=== PATIENT | female | born 1965 | race Two or more races ===

== ENCOUNTER 2018-09-19 18:59 | Inpatient (IN) | payer BC, MEDICARE ==
[~2018-09-19] VITALS: Ht 157.5 cm; Wt 102.2 kg
[2018-09-19 20:00] LABS: Basophils # (auto) 0 uL; Eosinophils # (auto) 0 uL; Hemoglobin 15.2 g/dL (12.2-16.2); Lymphocytes # (auto) 0.1 uL; Monocytes # (auto) 0.7 uL; Nucleated Red Blood Cells % 0.1 %
[2018-09-19 20:09] LABS: Urine Bacteria FEW /hpf (None Seen); Urine Blood 3+ /uL (Negative); Urine Specific Gravity 1.011 (1.001-1.035); Urine WBC 154 /hpf (0 - 5); Urine WBC Clumps PRESENT /hpf (None Seen)
[2018-09-19 20:11] LABS: Albumin 2.9 g/dL (3.4-5.0); Calcium 9.1 mg/dL (8.5-10.1)
[2018-09-19 20:14] LABS: Bilirubin, Total 1.8 mg/dL (0.2-1.0); Total Protein 7.7 g/dL (6.4-8.2)
[2018-09-19 20:23] LABS: Basophils % (auto) 0.7 % (0.0-2.0); Eosinophils % (auto) 0.2 % (0.0-7.0); Neutrophils % (auto) 86.1 % (37.0-80.0); White Blood Cell 6.3 10^3/uL (4.4-10.8)
[2018-09-19 20:24] LABS: Hematocrit 45.3 % (36.0-46.0); Mean Corpuscular Hemoglobin 31.4 pg (28.0-32.0); Mean Corpuscular Hgb Conc. 33.4 g/dL (32.0-36.0); Mean Corpuscular Volume 93.9 fL (80.0-100.0); Neutrophils # (auto) 5.4 uL; Potassium 2.4 mmol/L (3.5-5.1); Red Blood Cells 4.83 10^6/uL (4.0-5.20); Red Cell Distribution Width 17.4 % (11.8-14.3)
[2018-09-19 20:25] LABS: Platelet Count (auto) 40 10^3/uL (140-450)
[2018-09-19] MEDS ORDERED: POTASSIUM CHL 20 Meq TABLET PO ONE (20:30)
[2018-09-19] MEDS: POTASSIUM CHL 20MEQ/100ML 100 ML IV SCH (20:30)
[2018-09-19] MEDS ORDERED: ONDANSETRON HCL 4 MG/2 ML VIAL IV ONE (23:00)
[2018-09-19] MEDS ORDERED: MORPHINE SULFATE 4 MG/ML SYR/VIAL IV ONE (23:00)
[2018-09-19 23:10] LABS: INR 1.28 (0.9-1.15); Partial Thromboplastin Time 27.3 sec (23.78-33.04); Prothrombin Time 13.5 sec (9.27-12.13)
[2018-09-20] MEDS ORDERED: cefTRIAXone 1GM/50ML D5W 50 ML IV ONE (01:30)
[2018-09-20] MEDS: POTASSIUM CHL 20MEQ/100ML 100 ML IV SCH (01:33)
[2018-09-20] MEDS ORDERED: MORPHINE SULFATE 4 MG/ML SYR/VIAL IV ONE (03:15)
[2018-09-20] MEDS ORDERED: ONDANSETRON HCL 4 MG/2 ML VIAL IV ONE (03:15)
[2018-09-20] MEDS ORDERED: METOPROLOL TARTRATE 50 MG TAB PO ONE (04:45)
[2018-09-20] MEDS ORDERED: VANCOMYCIN PER PHARMACY 0 MG IV SCH (07:15)
[2018-09-20] MEDS ORDERED: ACETAMINOPHEN 500 MG TAB PO PRN (07:15)
[2018-09-20] MEDS ORDERED: ONDANSETRON HCL 4 MG/2 ML VIAL IV PRN (07:15)
[2018-09-20 07:47] LABS: Mean Corpuscular Hemoglobin 31.1 pg (28.0-32.0); White Blood Cell 3.3 10^3/uL (4.4-10.8)
[2018-09-20 07:49] LABS: Hematocrit 40.5 % (36.0-46.0); Hemoglobin 13.4 g/dL (12.2-16.2); Mean Corpuscular Hgb Conc. 33.1 g/dL (32.0-36.0); Mean Corpuscular Volume 93.9 fL (80.0-100.0); Platelet Count (auto) 26 10^3/uL (140-450); Red Blood Cells 4.32 10^6/uL (4.0-5.20); Red Cell Distribution Width 17.9 % (11.8-14.3)
[2018-09-20 07:55] LABS: Basophils % (manual) 0 (0.0-2.0); Blast Cells 0; Eosinophils % (manual) 0 (0-7); Metamyelocytes % 0; Myelocytes % 0; Promyelocytes % 0; Reactive Lymphocytes 0
[2018-09-20] MEDS ORDERED: VANCOMYCIN 1GM/250ML 250 ML IV SCH (08:00)
--- NOTE | 2018-09-20 08:00 | NUR ---
ADMISSION ASSESSMENT COMPLETED PATIENT ADMITTED TO ROOM 251B. MED REC COMPLETED, PATIENT SIGNED AND HOME MEDS SENT TO PHARMACY. ALERT AND ORIENTED X4, AMBULATORY. IV PLACED TO RIGHT FOREARM 20G AFTER ONE ATTEMPT, PATIENT TOLERATED IT WELL.
[2018-09-20 08:03] LABS: BUN/Creatinine Ratio 7.4; Calcium 7.9 mg/dL (8.5-10.1)
[2018-09-20 08:08] LABS: Potassium 2.8 mmol/L (3.5-5.1)
--- NOTE | 2018-09-20 08:08 | NUR ---
Received call from Lab. Patient has critical potassium level of 2.8. Paged on-call hospitalist Dr. Ulrich. returned page and gave order for additional potassium, hold 1000 dose until evaluated by hospitalist. Patient denies s/s of distress and asymptomatic. Will continue to monitor.
[2018-09-20] MEDS ORDERED: POTASSIUM CHLORIDE 20 MEQ, LIDOCAINE 1% (LOCAL ANESTH.) 2 ML in SODIUM CHL 0.9% 100 ML IV ONE (08:30)
[2018-09-20] MEDS ORDERED: POTASSIUM CHL 20 Meq TABLET PO ONE ×2 (08:30→15:00)
[2018-09-20 08:38] LABS: Band Neutrophils % (manual) 7; Lymphocytes % (manual) 9 (10.0-50.0); Monocytes % (manual) 17 (0-12)
[2018-09-20 08:44] VITALS: BP 129/57
[2018-09-20] MEDS ORDERED: PNEUMOCOCCAL VACC POLYS 25 MCG/0.5 ML VIAL IM ONE (09:00)
[2018-09-20] MEDS ORDERED: INFLUENZA QUAD 2018-2019 0.5 ML SYRG IM ONE (09:00)
[2018-09-20] MEDS ORDERED: ALBU1AER4 IN (09:07)
[2018-09-20] MEDS ORDERED: SENN1TAB14 PO (09:07)
[2018-09-20] MEDS ORDERED: POTA10TA51 PO (09:07)
[2018-09-20] MEDS ORDERED: ATEN50TA PO (09:07)
[2018-09-20] MEDS ORDERED: FURO40TA4 PO (09:07)
[2018-09-20] MEDS ORDERED: DULO60CA PO (09:07)
[2018-09-20] MEDS ORDERED: GABA300C10 PO (09:07)
[2018-09-20] MEDS ORDERED: PANT40TA2 PO (09:07)
[2018-09-20] MEDS ORDERED: HYDR-3682 PO (09:07)
[2018-09-20] MEDS ORDERED: TRAZ50TA2 PO (09:07)
[2018-09-20] MEDS ORDERED: DOCU100T15 PO (09:07)
[2018-09-20] MEDS ORDERED: [UNRECOGNIZED DRUG - CODE] PO (09:07)
[2018-09-20] MEDS: HYDROcodone-ACET 5/325MG TAB PO PRN ×4 (09:10→22:27)
[2018-09-20] MEDS: ATENOLOL 50 MG TAB PO SCH ×3 (09:10→22:25)
[2018-09-20] MEDS: VANCOMYCIN 1GM/250ML 250 ML IV SCH ×2 (09:11→18:41)
[2018-09-20] MEDS: DULoxetine HCL 30 MG CAP PO SCH (09:11)
[2018-09-20] MEDS: POTASSIUM CHL 20 Meq TABLET PO SCH (10:00)
--- NOTE | 2018-09-20 10:38 | NUR ---
DR. Ulrich returned page. Per , administer Lasix and hold 1000 potassium. 1 hour after IV potassium is finished being administered, draw BMP.
[2018-09-20] MEDS: FUROSEMIDE 40 MG TAB PO SCH (10:47)
--- NOTE | 2018-09-20 12:00 | NUR ---
MD AWARE OF DISCOLORATION ON HIP, NO NEW ORDERS GIVEN.
--- NOTE | 2018-09-20 13:05 | NUR ---
Per Courtney RN, Dr. Marroquin saw patient assessed her with speculum with 3 RNs at bedside. No distress noted, stated patient can receive estrogen cream and to follow-up with OBGYN as outpatient. stated he will review u/s.
[2018-09-20 13:23] LABS: BUN/Creatinine Ratio 6.8; Calcium 8.4 mg/dL (8.5-10.1); Potassium 3.1 mmol/L (3.5-5.1)
[2018-09-20 13:40] VITALS: BP 139/80
[2018-09-20] MEDS: GABAPENTIN 300 MG CAP PO SCH ×2 (14:16→22:25)
[2018-09-20] MEDS ORDERED: DEXTROSE (50%) 50ML SYRG IV PRN (15:00)
--- NOTE | 2018-09-20 15:15 | NUR ---
Patient continues to defecate in urine. Unable to collect urine culture. Patient educated for the need of urine culture without bowel movement.
[2018-09-20] MEDS: ACCU-CHEK COMFORT CURVE STRIP VI SCH ×2 (16:52→22:00)
[2018-09-20] MEDS: InsuLIN REG 1unit/0.01ml Soln (100units/ml) SC SCH ×2 (16:52→22:00)
[2018-09-20 16:57] VITALS: BP 113/54
[2018-09-20] MEDS: Glucerna Carbsteady SHAKE Vanilla 8oz PO SCH (18:00)
--- NOTE | 2018-09-20 19:23 | NUR ---
Change of shift given to shift stacker RN. No distress noted.
--- NOTE | 2018-09-20 19:25 | NUR ---
Opening Shift Note Assumed care of patient, awake and alert. No S/S of distress/SOB or pain. Instructed on POC and to call for assist PRN, will continue to monitor for changes Q1hr and PRN.
[2018-09-20 22:00] VITALS: BP 118/69
[2018-09-20] MEDS ORDERED: traZODone HCL 50 MG TAB PO SCH (22:00)
[2018-09-21 05:00] VITALS: BP 118/62
[2018-09-21] MEDS: VANCOMYCIN 1GM/250ML 250 ML IV SCH (05:24)
[2018-09-21] MEDS: GABAPENTIN 300 MG CAP PO SCH ×2 (06:10→14:00)
[2018-09-21] MEDS: InsuLIN REG 1unit/0.01ml Soln (100units/ml) SC SCH ×2 (07:00→11:30)
[2018-09-21] MEDS: ACCU-CHEK COMFORT CURVE STRIP VI SCH ×2 (07:10→11:56)
--- NOTE | 2018-09-21 07:24 | NUR ---
Opening Shift Note Assumed care of patient, awake and alert. No S/S of distress/SOB or pain. Instructed on POC and to call for assist PRN, will continue to monitor for changes Q1hr and PRN. Per second shift supervisor RN, urine culture was sent.
[2018-09-21 07:39] VITALS: BP 99/48
[2018-09-21 07:50] LABS: Hematocrit 43.6 % (36.0-46.0); Hemoglobin 14.4 g/dL (12.2-16.2); Mean Corpuscular Hemoglobin 31.4 pg (28.0-32.0); Mean Corpuscular Hgb Conc. 33.1 g/dL (32.0-36.0); Mean Corpuscular Volume 94.9 fL (80.0-100.0); Platelet Count (auto) 31 10^3/uL (140-450); Red Cell Distribution Width 18.5 % (11.8-14.3); White Blood Cell 3.4 10^3/uL (4.4-10.8)
[2018-09-21] MEDS: Glucerna Carbsteady SHAKE Vanilla 8oz PO SCH ×2 (08:00→12:00)
[2018-09-21 08:04] LABS: BUN/Creatinine Ratio 8.9; Calcium 8.3 mg/dL (8.5-10.1); Potassium 3.5 mmol/L (3.5-5.1)
--- NOTE | 2018-09-21 08:52 | NUR ---
Urine culture received Called microbiology. Micro received urine culture.
[2018-09-21] MEDS ORDERED: cefTRIAXone 1GM/50ML D5W 50 ML IV SCH (09:00)
[2018-09-21] MEDS: ATENOLOL 50 MG TAB PO SCH (09:47)
[2018-09-21] MEDS: DULoxetine HCL 30 MG CAP PO SCH (09:47)
[2018-09-21] MEDS: HYDROcodone-ACET 5/325MG TAB PO PRN (09:58)
[2018-09-21] MEDS: FUROSEMIDE 40 MG TAB PO SCH (11:51)
[2018-09-21] MEDS: POTASSIUM CHL 20 Meq TABLET PO SCH (11:51)
[2018-09-21 12:07] VITALS: BP 132/72
[2018-09-21] MEDS ORDERED: CLINDAMYCIN 600MG IV 50 ML IV SCH (14:00)
[2018-09-21 14:05] VITALS: BP 111/61
[2018-09-21 14:19] LABS: Band Neutrophils % (manual) 12; Eosinophils % (manual) 5 (0-7); Lymphocytes % (manual) 24 (10.0-50.0); Metamyelocytes % 7; Monocytes % (manual) 20 (0-12)
--- NOTE | 2018-09-21 15:00 | NUR ---
PATIENT SATURATING 93-95% ON RA THROUGHOUT SHIFT NO DISTRESS/SOB NOTED.
--- NOTE | 2018-09-21 15:07 | NUR ---
Patient stated Quyen Matthew is PCP and patient has f/u appt next week on 09/28/18.
--- NOTE | 2018-09-21 15:53 | NUR ---
MRSA swab sent.
--- NOTE | 2018-09-21 16:00 | NUR ---
Patient refused vaccines. Education provided to patient. Patient stated she will get vaccines from PCP.
--- NOTE | 2018-09-21 16:07 | NUR ---
Discharge instructions given as ordered. Encourage to follow up with PMD as instructed. All questions and concerns addressed. Patient verbalized understanding. Medication reconciliation form completed and copy given to patient. Home medications held in Pharmacy returned to patient, and patient refused needed vaccines. IV removed with catheter intact, pressure dressing applied. Patient taken to vehicle via wheelchair with all personal belongings, accompanied by staff and family member. No distress noted at time of departure.
== END 2018-09-21 16:07 | disposition home or self-care (01) | DRG 760 ==
LOC: ER 18:59 → EAST 09-20 07:05
PROVIDERS: ADMIT Nurse Practitioner Family; ATTEND Internal Medicine
DX: S31.41XA Laceration without foreign body of vagina and vulva, initial encounter (principal); E44.0 Moderate protein-calorie malnutrition; E87.1 Hypo-osmolality and hyponatremia; I13.0 Hypertensive heart and chronic kidney disease with heart failure and stage 1 through stage 4 chronic kidney disease, or unspecified chronic kidney disease; I50.32 Chronic diastolic (congestive) heart failure; I85.00 Esophageal varices without bleeding; K76.6 Portal hypertension; N39.0 Urinary tract infection, site not specified; N17.9 Acute kidney failure, unspecified; Z68.41 Body mass index [BMI] 40.0-44.9, adult; E87.6 Hypokalemia; F32.9 Major depressive disorder, single episode, unspecified; F41.9 Anxiety disorder, unspecified; K21.9 Gastro-esophageal reflux disease without esophagitis; K72.90 Hepatic failure, unspecified without coma; K76.0 Fatty (change of) liver, not elsewhere classified; M48.061 Spinal stenosis, lumbar region without neurogenic claudication; M43.10 Spondylolisthesis, site unspecified; M48.14 Ankylosing hyperostosis [Forestier], thoracic region; N18.9 Chronic kidney disease, unspecified; N93.0 Postcoital and contact bleeding; X58.XXXA Exposure to other specified factors, initial encounter; Y93.89 Activity, other specified; Y92.89 Other specified places as the place of occurrence of the external cause; Y99.8 Other external cause status; Z90.710 Acquired absence of both cervix and uterus
CPT/HCPCS: 36415; 74176; 76856; 80048; 80053; 81001; 82565; 82962; 83036; 84443; 85007; 85025; 85027; 85610; 85730; 87081; 87086; 96365; 96375; 96376; G0378; J0696; J2001; J2405; J3480